=== PATIENT | female | born 1990 | race Native Hawaiian/Other Pacific Islander ===

== ENCOUNTER 2017-08-28 13:17 | Outpatient (CLI) | payer BC ==
[~2017-08-28 13:17] MED LIST: DICL75TA4 PO; NORTRIPTYLIN25 MG PO; TOPAMAX50 MG PO
== END 2017-08-28 19:03 | disposition home or self-care (01) ==
LOC: RAD 13:17
DX: R07.89 Other chest pain (principal)

== ENCOUNTER 2017-08-28 17:11 | Outpatient (CLI) | payer BC | END 2017-08-28 19:07 | disposition home or self-care (01) | LOC: LABW 17:11 | DX: R07.89 Other chest pain (principal) | CPT/HCPCS: 84484 ==

== ENCOUNTER 2018-08-26 10:29 | Outpatient (CLI) | payer OTHER | END 2018-08-26 19:59 | disposition home or self-care (01) | LOC: LABW 10:29 | DX: N91.1 Secondary amenorrhea (principal) | CPT/HCPCS: 36415; 82670; 84144; 84702 ==

== ENCOUNTER 2018-08-28 08:12 | Outpatient (CLI) | payer OTHER | END 2018-08-28 19:47 | disposition home or self-care (01) | LOC: LABW 08:12 | DX: N91.1 Secondary amenorrhea (principal) | CPT/HCPCS: 36415; 84702 ==

== ENCOUNTER 2021-01-17 09:26 | Outpatient (CLI) | payer OTHER | END 2021-01-17 20:44 | disposition home or self-care (01) | LOC: US 09:26 | PROVIDERS: ATTEND Internal Medicine | DX: R10.11 Right upper quadrant pain (principal) ==

== ENCOUNTER 2021-07-11 10:48 | Outpatient (CLI) | payer OTHER ==
[2021-07-11 11:04] LABS: PLATELET COUNT 200 K/uL (152-353)
[2021-07-11 11:27] LABS: POTASSIUM 4.1 mmol/L (3.6-5.2)
== END 2021-07-11 22:17 | disposition home or self-care (01) ==
LOC: LABW 10:48
PROVIDERS: ATTEND Podiatrist
DX: Z01.810 Encounter for preprocedural cardiovascular examination (principal); Z01.811 Encounter for preprocedural respiratory examination; Z01.812 Encounter for preprocedural laboratory examination
CPT/HCPCS: 36415; 80053; 85027

== ENCOUNTER 2023-06-06 22:09 | Emergency (ER) | payer OTHER ==
[~2023-06-06] VITALS: Ht 167.6 cm; Wt 108.9 kg
[2023-06-06 22:15] VITALS: TEMP 98.6
[2023-06-07 00:15] VITALS: BP 126/72
== END 2023-06-07 00:15 | disposition home or self-care (01) ==
LOC: ED 22:09
PROC: 2W3CX1Z Immobilization of Right Lower Arm using Splint (ICD-10-PCS; principal; 2023-06-06)
DX: S63.501A Unspecified sprain of right wrist, initial encounter (principal); T14.8XXA Other injury of unspecified body region, initial encounter; W19.XXXA Unspecified fall, initial encounter
CPT/HCPCS: 81025; 99283

== ENCOUNTER → 2023-06-28 | Outpatient (CLI) | payer OTHER | LOC: RAD 21:46 | PROVIDERS: ATTEND Orthopaedic Surgery | DX: M25.531 Pain in right wrist (principal) ==

== ENCOUNTER 2023-07-31 06:40 | Outpatient (CLI) | payer OTHER | END 2023-07-31 19:48 | disposition home or self-care (01) | LOC: RAD 06:40 | PROVIDERS: ATTEND Orthopaedic Surgery | DX: S52.521A Torus fracture of lower end of right radius, initial encounter for closed fracture (principal); Y92.89 Other specified places as the place of occurrence of the external cause ==